=== PATIENT | male | born 1960 | race Caucasian/White ===

== ENCOUNTER 2019-02-06 10:07 | Inpatient (IN) | payer OTHER ==
[~2019-02-06] VITALS: Ht 182.9 cm; Wt 85.6 kg
[2019-02-06 10:24] LABS: BASOPHILS ABSOLUTE AUTO 0.04 K/mm3 (0.00-0.23); BASOPHILS PERCENT AUTO 1 % (0-2); EOSINOPHILS ABSOLUTE AUTO 0.25 K/mm3 (0.00-0.68); EOSINOPHILS PERCENT AUTO 3 % (0-6); Hematocrit 45.1 % (37.0-53.0); IMMATURE GRAN ABSOLUTE AUTO 0.02 K/mm3 (0.00-0.10); IMMATURE GRAN PERCENT AUTO 0 % (0-1); LYMPHOCYTES ABSOLUTE AUTO 1.51 K/mm3 (0.84-5.20); LYMPHOCYTES PERCENT AUTO 21 % (21-46); MONOCYTES ABSOLUTE AUTO 0.46 K/mm3 (0.16-1.47); MONOCYTES PERCENT AUTO 6 % (4-13); Mean Corpuscular HGB 31.4 pg (26.0-34.0); Mean Corpuscular HGB Conc 33.3 g/dL (31.5-36.5); Mean Corpuscular Volume 95 fL (80-100); Mean Platelet Volume 10.1 fL (9.1-12.4); NEUTROPHILS ABSOLUTE AUTO 5.03 K/mm3 (1.96-9.15); NEUTROPHILS PERCENT AUTO 69 % (41-73); Platelet Count 208 K/mm3 (150-400); RDW Coefficient Variation 12.3 % (11.7-14.2); Red Blood Cell Count 4.77 M/mm3 (4.30-5.90); White Blood Cell Count 7.31 K/mm3 (4.00-11.30)
[2019-02-06 10:40] LABS: International Normalized Ratio 1.03; Prothrombin Time Results 10.9 Sec (9.7-11.5)
[2019-02-06 10:45] LABS: Alanine Aminotransfer (ALT/SGP 22 U/L (12-78); Albumin, Blood 3.9 g/dL (3.4-5.0); Albumin/Globulin Ratio 1.1 (0.8-1.8); Alk Phos 79 U/L (50-136); Anion Gap 5 mmol/L (6-16); Aspartate Aminotrans (AST/SGOT 24 U/L (12-37); Bilirubin, Total 0.3 mg/dL (0.1-1.0); Blood Urea Nitrogen 11 mg/dL (8-24); Bun/Creatinine Ratio 15.4 (12.0-20.0); CO2, Blood 28 mmol/L (21-32); Calcium, Blood 8.7 mg/dL (8.5-10.1); Chloride, Blood 108 mmol/L (98-108); Creatinine, Blood 0.71 mg/dL (0.60-1.20); Globulin, Blood 3.4 g/dL (2.2-4.0); Glomerular Filtration Rate >60 (60-); Glucose, Blood 99 mg/dL (70-99); Potassium, Blood 4.6 mmol/L (3.5-5.5); Sodium, Blood 141 mmol/L (136-145); Total Protein, Blood 7.3 g/dL (6.4-8.2)
[2019-02-06 13:52] LABS: U Amphetamine Screen Not Detected; U Barbituate Screen Not Detected; U Benzodiazapine Screen Not Detected; U Buprenorphine Screen Not Detected; U Cannabinoids Screen Not Detected; U Cocaine Screen Not Detected; U Methadone Screen Not Detected; U Methamphetamine Screen Not Detected; U Opiates Screen Not Detected; U Oxycodone Screen Not Detected; U Phencyclidine Screen Not Detected; U Propoxyphene Screen Not Detected
--- NOTE | 2019-02-06 14:36 | NUR ---
PT ARRIVED TO ROOM 327 VIA GURNEY, PT WAS ABLE TO STAND AND TRANSFER TO BED WITH ONE ASSIST. PT SOMEWHAT UNSTEADY ON HIS FEET WITH LEFT SIDED WEAKNESS. LEFT SIDED FACIAL DROOP AND SLURRED SPEECH NOTED. PT IS ABLE TO MAKE HIMSELF UNDERSTOOD AND IS ORIENTED X4. PT ORIENTED TO ROOM AND CALL SYSTEM, INSTRUCTED CALL FOR ASSIST WHEN GETTING UP. CALL PEARL IN REACH, WILL MONITOR
--- NOTE | 2019-02-06 17:40 | NUR ---
NO ACUTE CHANGES NOTED SINCE ARRIVAL TO ROOM, WILL CONTINUE TO MONITOR AND REPORT TO ONCOMING RN
--- NOTE | 2019-02-07 05:13 | NUR ---
Shift summary: Pt uncoordinated when up ambulating . Requires walker and one person assist. Pt cannot seem to keep both feet going forward. Was not able to tolerate ambulation for very long. Speech improving but still hard to understand at time. Pt remains npo but pt is very hungry. Pt also has issues with his back but is not willing to take rectal tylenol. Pt awaiting a swallow eval so he can eat.
--- NOTE | 2019-02-07 18:20 | NUR ---
SHIFT SUMMARY PT A&OX4. CALM AND COOPERATIVE WITH CARE. PT RESTING IN BED DURING SHIFT, UP WITH 1 PERSON ASSIST WITH WALKER. PT LEFT SIDED FACIAL DROOP AND SLURRED SPEECH NOTED, LEFT SIDED WEAKNESS, DRAWS LEFRT KNEE UP WHEN WALKING AND TIRES QUICKLY. SPEECH EVAL AND PT EVAL COMPLETED DURING SHIFT. PT RECEIVING ASPIRIN AND PLAVIX AND STARTED ON ZESTRIL THIS AM. VSS. NO OTHER ACUTE CHANGES NOTED DURING SHIFT. WILL CONTINUE TO MONITOR UNTIL REPORT GIVEN TO ONCOMING RN.
--- NOTE | 2019-02-08 04:34 | NUR ---
SUMMARY: NO CHANGE TONIGHT, PT HAS DONE WELL. UP WITH SBA REPORTS FEELING LESS AND LESS WEAK AND ABLE TO MOVE L SIDE BETTER. DENIES N/T, NEURO CHECKS WNL. PT DENIES PAIN, VSS. PLAN IS POSSIBLE DC TODAY. WILL CTM AND REPORT TO DAY RN
[2019-02-08 05:47] LABS: Anion Gap 5 mmol/L (6-16); Blood Urea Nitrogen 11 mg/dL (8-24); CO2, Blood 29 mmol/L (21-32); Calcium, Blood 8.8 mg/dL (8.5-10.1); Chloride, Blood 107 mmol/L (98-108); Creatinine, Blood 0.78 mg/dL (0.60-1.20); Glomerular Filtration Rate >60 (60-); Glucose, Blood 98 mg/dL (70-99); Potassium, Blood 4.2 mmol/L (3.5-5.5); Sodium, Blood 141 mmol/L (136-145)
[2019-02-08] MEDS ORDERED: ATOR40TA PO (10:05)
[2019-02-08] MEDS ORDERED: ASPI81CH PO (10:05)
[2019-02-08] MEDS ORDERED: HYDCHL12.5 PO (10:06)
[2019-02-08] MEDS ORDERED: Prinivil10 MG PO (10:06)
[2019-02-08] MEDS ORDERED: CLOP75 PO (10:06)
[2019-02-08] MEDS ORDERED: Nicotine Patch1 EAC5 TOP (10:07)
--- NOTE | 2019-02-08 11:01 | NUR ---
PT DISCHARGED VIA WC WITH GIRLFRIEND. PERSONAL BELONGINGS WITH PT. PT VERB UNDERSTANDING OF DC INSTRUCTIONS.
== END 2019-02-08 11:04 | disposition home health service (06) | DRG 65 ==
LOC: ER 10:07 → MEDS 12:23
PROVIDERS: Emergency Medicine; ADMIT Internal Medicine
DX: I63.9 Cerebral infarction, unspecified (principal); G81.94 Hemiplegia, unspecified affecting left nondominant side; R29.810 Facial weakness; I16.0 Hypertensive urgency; I10 Essential (primary) hypertension; F17.210 Nicotine dependence, cigarettes, uncomplicated
CPT/HCPCS: 36415; 70496; 70551; 71046; 80048; 80053; 85025; 85610; 92610; 93005; 93010; 96360-59; 97116; 97162; 99285-25; J1650; J7120; Q9967